=== PATIENT | male | born 1965 | race Caucasian/White ===

== ENCOUNTER 2020-12-23 11:53 | Outpatient (CLI) | payer OTHER, SELFPAY ==
--- NOTE | ~2020-12-23 | XR_ITS ---
EXAMINATION: XR knee RT 2V DATE: 12/23/2020 12:07 INDICATION: Right knee pain. TECHNIQUE: 2 views of right knee were obtained. COMPARISON: None. FINDINGS: There is varus angulation at the knee. No fracture. There is moderate osteoarthritis of med ial and patellofemoral compartments. No knee joint effusion. IMPRESSION: 1. Moderate right knee osteoarthritis. Reviewed, dictated and finalized at location A.
== END 2020-12-23 11:54 | disposition home or self-care (01) ==
LOC: ANHIMG 11:57
PROVIDERS: PCP Internal Medicine; Visit Provider Nurse Practitioner
DX: G89.29 Other chronic pain (principal); M25.561 Pain in right knee; M17.11 Unilateral primary osteoarthritis, right knee
CPT/HCPCS: 73560

== ENCOUNTER 2022-06-30 03:20 | Day surgery (SDC) | payer OTHER, SELFPAY ==
[2022-06-21 13:06] VITALS: BMI 24.7
[2022-06-30 08:55] VITALS: BP 138/91; PULSE 85; RESP 18; TEMP 36.6; O2SAT 100; BMI 25.2
[2022-06-30] MEDS: LACTATED RINGERS 1,000 ML 150 ML IV CONT (09:21)
--- NOTE | 2022-06-30 09:30 | WPDANESEPPF ---
Anes - Initial Pre Proc Eval Procedure: Operation Date: 06/30/22 10:15 Proposed Procedures p Screening Colonoscopy - Giancarlo Yuan MD Date/Time: 06/30/22 09:30 Surgeon: Giancarlo Yuan MD Pre Op Diagnosis: neoplasm screening Patient Data Age: 56 Gender: M Height: 1.83 m Weight: 84.3 kg Last Vital Signs Temp 97.8 F 06/30/22 08:55 Pulse 85 06/30/22 08:55 Resp 18 06/30/22 08:55 BP 138/91 H 06/30/22 08:55 Pulse Ox 100 06/30/22 08:55 O2 Del Method Room Air 06/30/22 08:55 Allergies Allergy/AdvReac Type Severity Reaction Status Date / Time No Known Allergies Allergy Verified 02/09/21 13:35 Home Medications Medication Instructions Recorded Confirmed Type glucosamine [id number] 1 tablet PO DAILY 02/14/19 06/21/22 History vannessa 1,500 mg-400 unit-100 mg tablet (Osteo Bi-Flex (5-Loxin)) multivitamin 1 tablet PO DAILY 02/14/19 06/21/22 History Patient hx anesthesia problems: none Family hx anesthesia problems: none Results Review: All pre-operative results and documents have been reviewed as part of the pre-operative evaluation. [facility] Past Medical History Medical History (Updated 12/16/20 @ 08:16 by Carlie Vazquez NP) Hernia Surgical History Surgical History H/O umbilical hernia repair Family History Family History Mother Patient's mother is in good health Father Patient's father is in good health Social History Social History Smoking status: Never smoker Alcohol intake: current Drinks per week: 4 Substance use type: does not use Living arrangements: with family Spiritual care concerns: No Anes - Eval Final PreProcedure Day of Procedure 06/30/22 09:30 Patient weight: overweight Heart: regular rate and rhythm Lungs: clear to auscultation Airway: Mallampati scale class II Neurological: alert and oriented Last oral intake: >/= 8 hours ASA classification: II Emergent: no Anesthetic plan: proceed Anesthesia type and monitoring: general GIVS and standard monitoring Results Review: All pre-operative results and documents have been reviewed as part of the pre-operative evaluation. Informed Consent: The patient's anesthetic plan and its attendant risks and benefits were discussed with the patient/family/POA. Questions were solicited and answers provided to the satisfaction of the patient/family/POA.
--- NOTE | 2022-06-30 09:58 | PM.HPGS ---
History of Present Illness History of Present Illness Consent: Risks, benefits, and alternatives have been discussed and questions answered. Patient agrees to proceed with procedure. Chief complaint: neoplasm screening Narrative: Emerson Asencio is a 56 year old male Presents for screening colonoscopy. Patient's current weight appetite and bowel movements are normal. Patient denies abdominal pain. He has had no bleeding. Patient reports his brother may have had colon polyps identified recently. Review of Systems Review of Systems: Review of systems noncontributory. [facility] Past Medical History Medical History (Updated 12/16/20 @ 08:16 by Carlie Vazquez NP) Hernia Surgical History Surgical History H/O umbilical hernia repair Family History Family History Mother Patient's mother is in good health Father Patient's father is in good health Social History Social History Smoking status: Never smoker Alcohol intake: current Drinks per week: 4 Substance use type: does not use Living arrangements: with family Spiritual care concerns: No Meds Home Medications and Allergies Home Medications Medication Instructions Recorded Confirmed Type glucosamine [id number]-[id number] 1 tablet PO DAILY 02/14/19 06/21/22 History vannessa 1,500 mg-400 unit-100 mg tablet (Osteo Bi-Flex (5-Loxin)) multivitamin 1 tablet PO DAILY 02/14/19 06/21/22 History Allergies Allergy/AdvReac Type Severity Reaction Status Date / Time No Known Allergies Allergy Verified 02/09/21 13:35 Vital Signs Vital Signs - 24 hr 06/30/22 08:55 Temperature 97.8 F Pulse Rate 85 Respiratory Rate 18 Blood Pressure 138/91 H Pulse Oximetry 100 Oxygen Delivery Room Air Exam Narrative: Physical exam reveals patient to be alert. Vital signs stable. HEENT exam is unremarkable. Patient is anicteric. Lungs are clear to auscultation and percussion. Heart is without murmur or extra sounds. Abdomen bowel sounds are present soft nontender with no organomegaly. Digital external rectal exam is normal. Assessment and Plan Assessment and plan (1) Screening for colon cancer: Code(s): Z12.11 - Encounter for screening for malignant neoplasm of colon Status: Acute Assessment and Plan: Patient presents for colonoscopy for neoplasia screening purposes. Further recommendations may be given after endoscopy.
[2022-06-30 10:24] VITALS: BP 126/83; PULSE 80; RESP 15; O2SAT 98
[2022-06-30 10:34] VITALS: BP 120/78; PULSE 85; RESP 19; O2SAT 98
[2022-06-30 10:44] VITALS: BP 125/81; PULSE 79; RESP 17; O2SAT 98
== END 2022-06-30 11:03 | disposition home or self-care (01) ==
PROVIDERS: PCP Internal Medicine; Visit Provider Internal Medicine Gastroenterology
PROC: 0DJD8ZZ Inspection of Lower Intestinal Tract, Via Natural or Artificial Opening Endoscopic (ICD-10-PCS; CPT 45378; principal; 2022-06-30 10:15)
DX: Z12.11 Encounter for screening for malignant neoplasm of colon (principal); K64.8 Other hemorrhoids
CPT/HCPCS: 45378; J2704; J7120

== ENCOUNTER → 2022-07-11 16:01 | Outpatient (CLI) | payer OTHER, SELFPAY ==
--- NOTE | ~2022-07-11 | XR_ITS ---
EXAM: XR hand LT min 3V DATE: 07/11/2022 16:11 HISTORY: Thumb pain . COMPARISON: None available. FINDINGS: Normal mineralization. No fracture or dislocation. No lytic or blastic lesion. Degenerativ e changes typical of osteoarthritis present in the interphalangeal joints of the fingers, the second and third MCP joints, radiocarpal joint, triscaphe joint and the trapeziometacarpal joint. Changes ar e most progressive at the trapeziometacarpal joint. No erosion or periosteal change. Soft tissues wit hin normal limits. IMPRESSION: Polyarticular osteoarthritis of the left hand. Reviewed, dictated and finalized at location K.
== END ==
PROVIDERS: PCP Clinical Nurse Specialist; Visit Provider Clinical Nurse Specialist
DX: M19.042 Primary osteoarthritis, left hand (principal)
CPT/HCPCS: 73130

== ENCOUNTER 2024-01-15 08:07 | Outpatient (CLI) | payer OTHER, SELFPAY ==
[2024-01-15 08:52] LABS: Add Urine Microscopic? NO; Appearance Urine Clear (Clear); Bilirubin Urine Negative (Negative); Blood Urine Negative (Negative); Color Urine Yellow (Yellow); Glucose Urine UA Negative (Negative); Ketones Urine Negative (Negative); Leukocyte Esterase Ur Negative LEU/UL (Negative); Nitrate Urine Negative (Negative); Protein Urine Negative (Negative); Specific Grav Ur 1.025 (1.001-1.035); Urobilinogen Urine 0.2 mg/dL (<2.0)
[2024-01-15 09:02] LABS: Basophils Percent Auto 0.4 % (0.2-1.2); Eosinophils Absolute Auto 0.1 K/mm3 (0-0.3); Eosinophils Percent Auto 2.1 % (0-4.4); Hematocrit 47.1 % (42.0-52.0); Hemoglobin 16.3 g/dL (14.0-18.0); Immature Granulocyte Absolute 0.02 K/mm3 (0.00-0.031); Immature Granulocyte Percent A 0.4 % (0-0.5); Lymphocytes Absolute Auto 1.74 K/mm3 (0.9-3.2); Lymphocytes Percent Auto 33.2 % (18.3-44.2); Mean Corpuscular HGB Conc 34.6 g/dl (32-36); Mean Corpuscular Hemoglobin 32.7 pg (26-34); Mean Corpuscular Volume 94.6 fl (80-100); Mean Platelet Volume 10.2 fl (7.4-10.4); Monocytes Absolute Auto 0.4 K/mm3 (0.1-0.6); Monocytes Percent Auto 8.2 % (2.6-8.5); Neutrophils Absolute Auto 2.9 K/mm3 (1.3-6.7); Neutrophils Percent Auto 55.7 % (45.5-73.1); Platelet Count Result 234 k/mm3 (150-375); Red Blood Count 4.98 M/mm3 (4.6-6.20); Red Cell Distribution Width 13.1 % (11.5-14.5); White Blood Count 5.2 K/mm3 (4.5-10.0)
[2024-01-15 09:18] LABS: Anion Gap 9 mmol/L (4-12); Blood Urea Nitrogen 18 mg/dL (9-20); Carbon Dioxide 27 mmol/L (22-30); Chloride 106 mmol/L (98-107); Estimated Glomerular Filt Rate > 60; Glucose 103 mg/dL (65-110); Potassium 4.1 mmol/L (3.4-5.0); Sodium 142 mmol/L (137-145)
--- NOTE | 2024-01-15 11:13 | ECG_ITS ---
Test Date: 2024-01-15 11:20:05 Measurements Intervals [place] Rate: 67 P: 5 NE: 149 QRS: 7 QRSD: 98 T: 14 QT: 369 QTc: 392 Interpretive Statements SINUS RHYTHM BASELINE ARTIFACT- II, III, AVR, AVL, AVF, V1 NORMAL ECG No previous ECG available for comparison Electronically Signed On 01-15-2024 11:30:32 RESIDENTIAL CASE MANAGER by Colton Shaikh D.O.
== END 2024-01-15 08:08 | disposition home or self-care (01) ==
LOC: ANHLAB 08:08
PROVIDERS: PCP Internal Medicine; Visit Provider Orthopaedic Surgery
DX: R53.83 Other fatigue (principal); E78.5 Hyperlipidemia, unspecified; I10 Essential (primary) hypertension
CPT/HCPCS: 36415; 80048; 81003; 85025; 93005

== ENCOUNTER 2024-02-12 07:49 | Outpatient (CLI) | payer OTHER, SELFPAY ==
[2024-02-12 09:05] LABS: Albumin Level 4.5 g/dL (3.5-5.1); Hemoglobin A1C 5.5 % (<5.7)
[2024-02-12 09:07] LABS: Prothrombin Time 13.2 Seconds (11.1-14.7)
[2024-02-12 09:08] LABS: Partial Thromboplastin Time 26.4 Seconds (22.3-36.8)
[2024-02-12 09:58] LABS: Urine Cotinine NEGATIVE
[2024-02-12 10:07] LABS: MRSA (PCR) NOT DETECTED (NOT DETECTE)
== END 2024-02-12 07:50 | disposition home or self-care (01) ==
LOC: ANHSURGERY 07:52
PROVIDERS: PCP Internal Medicine; Visit Provider Orthopaedic Surgery
DX: M17.11 Unilateral primary osteoarthritis, right knee (principal); Z01.818 Encounter for other preprocedural examination
CPT/HCPCS: 80307; 82040; 83036; 85610; 85730; 87641

== ENCOUNTER 2024-02-27 01:44 | Day surgery (SDC) | payer OTHER, SELFPAY ==
[2024-02-12 08:01] VITALS: BMI 25.7
[2024-02-12 08:16] VITALS: BP 127/64; PULSE 78; RESP 16; TEMP 36.8; O2SAT 99
--- NOTE | 2024-02-12 08:17 | PC.NURSE ---
Report to the Outpatient Waiting Room, entrance under the green pavilion located off [facility], at time __0830am __ on date _02/27/24 . Planned Procedure Time: __10:30am .? Time changes happen often and if your time is changed the preop area will call you the afternoon before. - You and your visitor will be asked to self-screen and do not enter if you have any COVID symptoms. Please call surgeon if you need to reschedule. - A mask is optional within the hospital at this time. Patients may have clear liquids (water, carbonated beverages, clear teas, apple juice) until 3 hours prior to surgery with a maximum of 20 ounces. - No food from midnight until time of surgery and no smoking. This includes no chewing gum, candy or mints.(07:30am) Take only the following medications with a SIP of water on the morning of surgery: None DO NOT STOP ANY OF YOUR OTHER PRESCRIPTION MEDICATIONS PRIOR TO SURGERY EXCEPT THE FOLLOWING Medications to discontinue per physician Hold all vitamins & supplements for 3 days prior per Anesthesia Date to take last dose____02/23/24 Please no make-up, nail israeli, hairspray, perfume, deodorant, or body powder the day of surgery.? No jewelry (including any body piercings) or valuables the day of surgery, leave them at home.? Please take a shower or bath the night before, or the morning of, surgery with an antibacterial soap & Hibicleanse scrub per Dr Mota.? Wear comfortable, loose fitting clothing.? - Jewelry must be removed prior to entering the operating room.? Rings and piercings that are not removed may be cut off. - The hospital will not accept responsibility for valuables.? - Please leave all valuables, including medications, at home the day of surgery. If you are going home after surgery, a licensed coach tour driver must drive you home.? - NO public transportation without another adult if you receive anesthesia. - We recommend that an adult stay with you for 24 hours following discharge. - We also recommend that you do not drive, make important decision, drink alcoholic beverages, or take any drugs that were not prescribed by your health care provider for at least 24 hours after your discharge time. Follow any additional instructions given to you from your surgeon. Telephone instructions given to _Patient and asked if any additional questions and then verbalized understanding. Patient advised to call surgeon office or pre surgery nurse liaison [phone] if any additional questions.
[2024-02-27] VITALS (14 sets, daily range): BP systolic 126–164; BP diastolic 76–98; PULSE 71–86; RESP 12–20; TEMP 36.5–36.9; O2SAT 98–100; BMI 26.1
--- NOTE | ~2024-02-27 | XR_ITS ---
[id number] Ordering provider: Kurtis Mota MD History: . POST-OP, RIGHT TKA . Comparison: None. FINDINGS: BONES: No acute fracture or dislocation. JOINT SPACES: Total knee arthroplasty. SOFT TISSUES: Subcutaneous postoperative changes with air seen. IMPRESSION: No acute osseous abnormality right knee. Total knee arthroplasty. Reviewed, dictated and finalized at location A. URE PROCESSOR
--- NOTE | 2024-02-27 07:21 | WPDHPUPDATE1 ---
History and Physical Update Update Date/Time: 02/27/24 07:21 History and Physical has been reviewed, including an updated exam of the patient. There are NO changes in the patient's condition. Risks, benefits, and alternatives have been discussed and questions answered. Patient agrees to proceed with procedure.
[2024-02-27] MEDS: ACETAMINOPHEN 500 MG TABLET 1000 MG PO (09:40)
--- NOTE | 2024-02-27 09:44 | P.PNAN_ITS ---
Anes - Initial Pre Proc Eval Procedure: Operation Date: 02/27/24 10:30 Proposed Procedures p Right Total Knee Arthroplasty - Kurtis Mota MD Date/Time: 02/27/24 09:44 Surgeon: Kurtis Mota MD Pre Op Diagnosis: right knee djd Patient Data Age: 58 Gender: M Height: 1.83 m Weight: 85.1 kg Last Vital Signs Temp 98.3 F 02/12/24 08:16 Pulse 78 02/12/24 08:16 Resp 16 02/12/24 08:16 BP 127/64 02/12/24 08:16 Pulse Ox 99 02/12/24 08:16 O2 Del Method Room Air 02/12/24 08:16 Allergies Allergy/AdvReac Type Severity Reaction Status Date / Time No Known Allergies Allergy Verified 02/18/24 13:38 Home Medications ?Medication ?Instructions ?Recorded ?Confirmed ?Type glucosamine [id number] 1 tablet PO DAILY 02/14/19 02/27/24 History vannessa 1,500 mg-400 unit-100 mg tablet (Osteo Bi-Flex (5-Loxin)) multivitamin 1 tablet PO DAILY 02/14/19 02/27/24 History sildenafil 50 mg tablet 50 mg PO DAILY PRN sexual activity 10/31/23 02/12/24 Rx #30 tabs omega 3-spl-ssd-fish oil 900 1 cap PO DAILY 02/12/24 02/27/24 History mg-1,400 mg capsule,delayed release Patient hx anesthesia problems: none Family hx anesthesia problems: none Results Review: All pre-operative results and documents have been reviewed as part of the pre- operative evaluation. [facility] Past Medical History Medical History (Updated 02/18/24 @ 15:30 by MIRIAM Lunsford) Right knee DJD Hyperlipidemia Varicose veins of bilateral lower extremities with pain Hernia Surgical History Surgical History H/O lateral meniscus repair of left knee H/O umbilical hernia repair Family History Family History Mother Patient's mother is in good health Father Patient's father is in good health Unknown Hypertension Social History Social History (Reviewed 02/18/24 @ 13:38 by Amy Navarro Smoking status: Never smoker Additional smoking assessment comments: Denies any nicotine Alcohol intake: current Drinks per week: 4 Substance use: never Substance use type: does not use Lack of Transportation: No Lack of Food: Never True Current Housing: I Have Housing Concerned About Future Housing: No Difficulty Paying Gas/Electric Bills: No Difficulty Paying for Meds: No Currently Unemployed: No Education: Trade/Vocational Certificate Difficulty w/ Childcare or Family Care: No Living arrangements: with family Additional living arrangements comments: Occupation/Education: occupation 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 Informed Consent: The patient's anesthetic plan and its attendant risks and benefits were discussed with the patient/family/POA. Questions were solicited and answers pr ovided to the satisfaction of the patient/family/POA.
[2024-02-27] MEDS: LACTATED RINGERS 1,000 ML 30 ML IV CONT ×2 (09:45→13:53)
[2024-02-27] MEDS: TRANEXAMIC ACID 1,000MG/ISO100 1,000 MG/100 ML BAG 200 MG IVPB (09:45)
--- NOTE | 2024-02-27 10:25 | SUR.PREOP ---
PT AND INFORMED OF POSSIBLE SURGERY TIME DELAY, DENIES NEEDS AT THIS TIME.
[2024-02-27] MEDS: ceFAZolin 2 GM/D5W 50 ML 2 GM/50 ML BAG IVPB ×2 (11:40→20:57)
[2024-02-27] MEDS: SODIUM CHLORIDE 0.9% IV 37.7 ML, MORPHINE SULFATE INJ (*CRX) 2 MG, ROPivacaine HCL 1% 2... INFILTRATE (12:28)
[2024-02-27] MEDS: TRANEXAMIC ACID 1,000 MG/10 ML AMPUL 1000 MG IV PUSH (13:07)
--- NOTE | 2024-02-27 13:44 | P.OP_ITS ---
Procedure Note - Detailed Date of Procedure 02/27/24 Pre-op Diagnosis right knee djd Post-op Diagnosis Same Procedure Performed R TKA Surgeon Kurtis Mota MD Anesthesia General Description of Procedure THE RIGHT KNEE WAS PREPPED AND DRAPED IN THE STERILE FASHION. THERE WAS A 10 DEGREE FLEXION CONTRACTURE. A MIDLINE SKIN INCISION WAS MADE. A MEDIAL PARAPATELLAR ARTHROTOMY WAS MADE. THE PATELLA WAS EVERTED. THERE WAS TRICOMPARTMENT DJD. THERE WAS MINIMAL PATELLA DJD. AN INTRAMEDULLARY SURINDER WAS PLACED IN THE FEMUR. A DISTAL FEMORAL CUT WAS MADE IN 5 DEGREES OF VALGUS REMOVING APPROXIMATELY 8 MM OF BONE FROM THE DISTAL FEMUR. THE FEMUR WAS SIZED TO 4. A 4 FEMORAL CUTTING BLOCK WAS PLACED IN 3 DEGREES OF EXTERNAL ROTATION AND IN ALIGNMENT WITH CAROL'S LINE AND THE TRANSEPICONDYLAR AXIS. ANTERIOR POSTERIOR AND CHAMFER CUTS WERE MADE. THE CUTS WERE EXCELLENT. NEXT AN INTRAMEDULLARY CUTTING GUIDE WAS PLACED IN THE TIBIA. A TRANS TIBIAL CUT WAS MADE ALONG THE LONG AXIS OF THE TIBIA. APPROXIMATELY 8 MM OF BONE WAS REMOVED FROM THE HIGH SIDE OF THE TIBIA. THE TIBIA WAS THEN PLANED TO A SMOOTH SURFACE. POSTERIOR FEMORAL OSTEOPHYTES WERE REMOVED FROM THE FEMORAL CONDYLES. A 5 TIBIAL TRIAL WAS PLACED IN ALIGNMENT WITH THE 1/3 MEDIAL ASPECT OF THE TIBIAL TUBERCLE. THEN A 5 FEMORAL TRIAL COMPONENT WAS PLACED. BOTH HAD EXCELLENT FITS. EVENTUALLY A 12 MM CR POLYETHYLENE TRIAL COMPONENT WAS PLACED. THE KNEE WAS TAKEN THROUGH A RANGE OF MOTION. THE KNEE CAME OUT TO FULL EXTENSION. T HERE WAS NO ABNORMAL TILT TO THE PATELLA. THERE WAS GOOD A/P AND VARUS/VALGUS STABILITY. THERE WAS NO EXCESSIVE ROLL BACK WITH FLEXION. THE TRIAL COMPONENTS WERE REMOVED. THEN A TONY 4 FEMORAL COMPONENT AND 5 TIBIAL COMPONENT WITH A 12 CR POLYETHYLENE COMPONENT WERE PRESS FIT INTO PLACE. THE KNEE WAS TAKEN THROUGH A ROM AGAIN AND FOUND TO BE STABLE WITH NO PATELLA TILT NO EXCESSIVE ROLL BACK WITH FLEXION AND GOOD STABILITY WITH COMPLETE AND FULL EXTENSION. THE KNEE WAS IRRIGATED WITH STERILE BETADINE AND WATER FOR ABOUT 3 MINUTES. THE BLEEDERS WERE CAUTERIZED. THE ARTHROTOMY WAS REPAIRED WITH NUMBER 1 VICRYL AND NUMBER2 QUIL. THE SUB CUTANEOUS LAYER WITH 2-0 VICRYL AND THE SKIN WITH A 3-0 QUIL AND DERMABOND. THE WOUND WAS WASHED AND A STERILE DRESSING WAS APPLIED. PATIENT WAS EXTUBATED. Estimated Blood Loss -100 Pathology None sent Complications No immediate complications Condition Stable Disposition PACU
[2024-02-27] MEDS: fentaNYL CITRATE INJ (*CRX) 100 MCG/2 ML VIAL 25 MCG IV PUSH ×8 (13:55→14:11)
--- NOTE | 2024-02-27 14:15 | WPDANESPNB ---
Anes - Peripheral Nerve Block Date/Time: 02/27/24 14:15 I have discussed with the patient/family/POA the placement of a peripheral nerve block for post-operative pain management, including associated risks, benefits, complications, and side effects. Alternative methods of post-operative analgesia were detailed. Questions were solicited and answers provided to the satisfaction of the patient/family/POA. Time-Out: A pre-procedural Time-Out was completed immediately before starting the procedure and confirmed: Patient Identification, Site, Procedure, Patient Position and the Availability of Requisite Equipment. Clinical Indications: Acute post-operative pain management requested by the operative surgeon. Nerve Block Insertion Note Anes-nerve block: adductor canal right Patient position: supine Skin prep: chlorhexidine Needle: 22 gauge, stimulating, insulated echogenic needle. Needle length: 80 mm Technique: ultrasound Technique comment: done in pacu Injectate: bupivacaine 0.5% with epi 5 mcg/ml (30ml no epi) Observations: tolerated well Complications: none Procedure start time:: 1403 Procedure end time:: 1410
[2024-02-27] MEDS: HYDROmorphone HCL INJ (*CRX) 1 MG/ML SYR 0.5 MG IV PUSH ×2 (14:49→14:55)
[2024-02-27] MEDS: SODIUM CHLORIDE 0.9% IV 1,000 ML 125 ML IV CONT (16:29)
[2024-02-27] MEDS: SENNA/DOCUSATE SODIUM TABLET 2 TAB PO (16:31)
[2024-02-27] MEDS: KETOROLAC 15 MG/ML VIAL (*BKC) IV PUSH ×2 (17:44→23:33)
[2024-02-27] MEDS: FAMOTIDINE 20 MG TABLET PO (20:58)
[2024-02-27] MEDS: ASPIRIN 325 MG ENTERIC TABLET PO (20:58)
[2024-02-28 05:00] VITALS: BP 147/81; PULSE 85; RESP 18; TEMP 36.6; O2SAT 100
[2024-02-28] MEDS: ceFAZolin 2 GM/D5W 50 ML 2 GM/50 ML BAG IVPB ×2 (05:03→12:37)
[2024-02-28] MEDS: KETOROLAC 15 MG/ML VIAL (*BKC) IV PUSH ×2 (05:03→12:36)
[2024-02-28 06:01] LABS: Basophils Percent Auto 0.2 % (0.2-1.2); Eosinophils Percent Auto 0.2 % (0-4.4); Hematocrit 41.8 % (42.0-52.0); Immature Granulocyte Absolute 0.06 K/mm3 (0.00-0.031); Immature Granulocyte Percent A 0.5 % (0-0.5); Lymphocytes Absolute Auto 1.49 K/mm3 (0.9-3.2); Lymphocytes Percent Auto 12.7 % (18.3-44.2); Mean Corpuscular HGB Conc 33.5 g/dl (32-36); Mean Corpuscular Hemoglobin 31.7 pg (26-34); Mean Corpuscular Volume 94.8 fl (80-100); Mean Platelet Volume 10.3 fl (7.4-10.4); Monocytes Percent Auto 8.1 % (2.6-8.5); Neutrophils Absolute Auto 9.2 K/mm3 (1.3-6.7); Neutrophils Percent Auto 78.3 % (45.5-73.1); Platelet Count Result 202 k/mm3 (150-375); Red Blood Count 4.41 M/mm3 (4.6-6.20); Red Cell Distribution Width 12.7 % (11.5-14.5); White Blood Count 11.7 K/mm3 (4.5-10.0)
[2024-02-28 06:09] LABS: Anion Gap 1 mmol/L (4-12); Blood Urea Nitrogen 14 mg/dL (9-20); Calcium 8.2 mg/dL (8.4-10.2); Carbon Dioxide 28 mmol/L (22-30); Chloride 108 mmol/L (98-107); Estimated CRCL calculation 70 ml/min; Estimated Glomerular Filt Rate > 60; Glucose 108 mg/dL (65-110); Sodium 137 mmol/L (137-145)
[2024-02-28] MEDS: oxyCODONE/ACETAMINOPHEN (*CRX) 5-325 MG TABLET 1 TABLET PO ×2 (08:23→12:35)
[2024-02-28] MEDS: SENNA/DOCUSATE SODIUM TABLET 2 TAB PO (08:24)
[2024-02-28] MEDS: FAMOTIDINE 20 MG TABLET PO (08:24)
[2024-02-28] MEDS: ASPIRIN 325 MG ENTERIC TABLET PO (08:24)
[2024-02-28] MEDS: polyethylene glycoL 3350 17 GM POWD.PACK PO (08:25)
[2024-02-28 09:00] VITALS: BP 110/62; PULSE 83; RESP 16; TEMP 36.4; O2SAT 100
--- NOTE | 2024-02-28 13:21 | P.PNOP_ITS ---
Progress Note: A&P Assessment and Plan (1) S/P total knee arthroplasty: Qualifiers: Laterality: right Qualified Code(s): Z96.651 - Presence of right artificial knee joint Code(s): Z96.659 - Presence of unspecified artificial knee joint Status: Acute Assessment and Plan: POD #1 : Right TKA Continue PT/OT. WBAT. Walker. HIGH FALL RISK. Continue pain control. Ice Knee. Protect skin. DVT prophylaxis with Aspirin. SCDs. Incentive Spirometry Use reviewed. Monitor Dressing. Change prior to discharge. Bowel Regimen. Dispo: Home with Home Health pending progress with PT/OT Plan Reviewed history, exam, radiographs and current labs with attending MD and covering surgeon, Dr. Mota, who agrees with current plan as indicated above. No further recommendations from Dr. Mota at this time. Time Spent With Patient Time with patient: 15 - 25 minutes Subjective Subjective Date/Time Seen: 02/28/24 13:21 Post Op day: 1 Interval history: POD #1: Right TKA Patient doing well. Pain well controlled. No new concerns. Hopeful for d/c home today. Review of Systems Review of Systems: All systems reviewed & are unremarkable except as noted in HPI and below Constitutional: Constitutional: Denies fever(s) and Denies headache(s) ENT: Denies headache(s) Cardiovascular: Cardiovascular: Denies chest pain, Denies diaphoresis, Denies palpitations and Denies dyspnea Respiratory: Respiratory: Denies dyspnea Gastrointestinal: Gastrointestinal: Denies abdominal pain, Denies constipation, Denies nausea and Denies vomiting Genitourinary: Genitourinary: Denies dysuria and Reports nocturia Musculoskeletal: Musculoskeletal: Reports arthralgias (Right Knee ) and Reports joint swelling (Right Knee ) Neurologic: Denies headache(s) Endocrine: Endocrine: Denies palpitations Exam Const: General: comfortable and no acute distress Resp: Effort & Inspection: normal respiratory effort Cardio: Rate: regular rate Rhythm: regular rhythm GI: GI Palp: Yes Soft to palpation, No Tenderness to palpation present (GI) and No Guarding due to palpation present (GI) Skin: General skin exam: wounds noted Wounds: wounds noted Other: Incision c/d/i. No surrounding redness/warmth. No hematoma. Mild ecchymosis. No wound dehiscence Neuro: Cognition (Neuro): normal cognition Other: NV intact aside from block. Moves toes. Sensation intact to light touch. +ankle dorsiflexion/plantarflexion. Extrem: Right lower extremity: normal to inspection, knee Details: tenderness (diffuse, mild ) Location: of the patella, swelling (diffuse, consistent with surgical intervention ), abnormal ROM Details: pain with active ROM during, pain with passive ROM during and with range as follows (limited due to recent surgical intervention ); able to extend lower leg actively and ecchymosis (mild ), lower leg (Negative Frank's Sign ) Details: normal to inspection; no erythema and no tenderness, ankle (+ankle dorsiflexion/plantarflexion ) Details: normal to inspection, no edema and normal ROM; no tenderness, no swelling and no ecchymosis and foot Details: normal capillary refill, normal to inspection, vascular exam Details: dorsalis pedis pulse present and motor-sensory exam Details: light-touch normal; no tenderness Left lower extremity: normal to inspection Psych: Mental Status: mental status grossly normal Objective Data Vital Signs Vital Signs: Vital Signs - 24 hr 02/27/24 13:53 02/27/24 14:05 02/27/24 14:20 Temperature 36.5 C Pulse Rate 77 79 80 Respiratory Rate 12 16 14 Blood Pressure 128/87 140/84 137/97 H Pulse Oximetry 100 100 100 Oxygen Delivery Simple Face Mask Simple Face Mask Simple Face Mask Oxygen Flow Rate 8 8 8 02/27/24 14:35 02/27/24 14:50 02/27/24 15:05 Temperature Pulse Rate 73 72 74 Respiratory Rate 13 12 20 Blood Pressure 148/90 H 144/95 H 155/90 H Pulse Oximetry 100 100 99 Oxygen Delivery Room Air Room Air Room Air Oxygen Flow Rate 02/27/24 15:13 02/27/24 15:40 02/27/24 15:55 Temperature 36.5 C 36.6 C Pulse Rate 72 85 85 Respiratory Rate 13 16 16 Blood Pressure 156/94 H 164/77 H 145/98 H Pulse Oximetry 100 99 100 Oxygen Delivery Room Air Oxygen Flow Rate 02/27/24 17:25 02/27/24 20:00 02/27/24 21:00 Temperature 36.8 C 36.8 C Pulse Rate 86 86 86 Respiratory Rate 16 20 20 Blood Pressure 148/76 H 156/87 H Pulse Oximetry 100 99 99 Oxygen Delivery Room Air Oxygen Flow Rate 02/27/24 23:54 02/28/24 05:00 02/28/24 08:05 Temperature 36.9 C 36.6 C Pulse Rate 71 85 Respiratory Rate 18 18 Blood Pressure 126/77 147/81 H Pulse Oximetry 98 100 Oxygen Delivery Room Air Oxygen Flow Rate 02/28/24 08:27 02/28/24 08:44 02/28/24 09:00 Temperature 36.4 C Pulse Rate 83 Respiratory Rate 16 Blood Pressure 110/62 Pulse Oximetry 100 Oxygen Delivery Room Air Room Air Oxygen Flow Rate Intake/Output Intake/Output: Intake & Output 02/25/24 02/26/24 02/27/24 02/28/24 23:59 23:59 23:59 23:59 Intake Total 1800 1010 Output Total 475 Balance 1325 1010 Meds/Results Medications: Active Medications Generic Name Dose Route Start Last Admin Trade Name Freq PRN Reason Stop Dose Admin Aspirin 325 mg 02/27/24 21:00 02/28/24 08:24 Aspirin 325 Mg Enteric Tablet PO 325 mg Q12HR YISSEL Administration Diazepam 5 mg 02/27/24 15:15 Diazepam (*Crx) 5 Mg Tablet PO Q8H PRN Spasms Diphenhydramine HCl 25 mg 02/27/24 15:15 Diphenhydramine Hcl Inj 50 Mg/Ml Vial IV PUSH Q6H PRN Itching Famotidine 20 mg 02/27/24 21:00 02/28/24 08:24 Famotidine 20 Mg Tablet PO 20 mg Q12HR YISSEL Administration Hydromorphone HCl 1 mg 02/27/24 15:15 Hydromorphone Hcl Inj (*Crx) 1 Mg/Ml Syr IV PUSH Q2H PRN Breakthrough Pain Rated 7-10 or NPO Hydromorphone HCl 0.5 mg 02/27/24 15:15 Hydromorphone Hcl Inj (*Crx) 1 Mg/Ml Syr IV PUSH Q2H PRN Breakthrough Pain Rated 4-6 or NPO Ibuprofen 800 mg in 200 mls @ 400 mls/hr 02/27/24 15:15 Caldolor 800 Mg/200 Ml IVPB Q6H PRN Breakthrough Pain Rated 1-3 or NPO Ketorolac Tromethamine 15 mg 02/27/24 18:00 02/28/24 12:36 Ketorolac 15 Mg/Ml Vial (*Bkc) IV PUSH 02/28/24 18:01 15 mg Q6HR YISSEL Administration Naloxone HCl 0.1 mg 02/27/24 15:15 Naloxone Hcl 0.4 Mg/Ml Vial IV PUSH Q2M PRN Opiate Reversal Ondansetron HCl 4 mg 02/27/24 15:15 Ondansetron Inj 4 Mg/2 Ml Vial IV PUSH Q4H PRN Nausea And Vomiting Oxycodone/Acetaminophen 1 tablet 02/27/24 15:15 02/28/24 12:35 Oxycodone/Acetaminophen (*Crx) 5-325 Mg Tablet PO 1 tablet Q4H PRN Administration Pain Rated 4-6 Oxycodone/Acetaminophen 1 tab 02/27/24 15:15 Oxycodone/Acetaminophen (*Crx) 10-325 Mg Tablet PO Q6H PRN Pain Rated 7-10 Polyethylene Glycol 17 gm 02/28/24 09:00 02/28/24 08:25 Polyethylene Glycol 3350 17 Gm Powd.Pack PO 17 gm QAM YISSEL Administration Senna/Docusate Sodium 2 tab 02/27/24 17:00 02/28/24 08:24 Senna/Docusate Sodium Tablet PO 2 tab BID YISSEL Administration Radiology Results: ITS Impressions Knee X-Ray 02/27/24 14:22 IMPRESSION: No acute osseous abnormality right knee. Total knee arthroplasty. Labs Labs: Laboratory Results - last 24 hr 02/28/24 05:27 WBC 11.7 H RBC 4.41 L Hgb 14.0 Hct 41.8 L MCV 94.8 MCH 31.7 MCHC 33.5 RDW 12.7 Plt Count 202 MPV 10.3 Immature Gran % (Auto) 0.5 Neut % (Auto) 78.3 H Lymph % (Auto) 12.7 L [place] % (Auto) 8.1 Eos % (Auto) 0.2 Baso % (Auto) 0.2 Lymph # (Auto) 1.49 [place] # (Auto) 1.0 H Eos # (Auto) 0.0 Baso # (Auto) 0.0 Abs Immat Gran (auto) 0.06 H Absolute Neuts (auto) 9.2 H Absolute Nucleated RBC 0.000 Nucleated RBC % 0.0 Sodium 137 Potassium 4.0 Chloride 108 H Carbon Dioxide 28 Anion Gap 1 L BUN 14 Creatinine 1.10 Estim Creat Clear Calc 70 Estimated GFR > 60 Glucose 108 Calcium 8.2 L Quality VTE Prophylaxis VTE prophylaxis: pharmacologic ordered
--- NOTE | 2024-02-28 13:24 | P.DS_ITS ---
DS: Admitting Diagnosis Discharge Date 02/28/2024 Admitting Diagnosis Right Knee DJD DS: Discharge Diagnosis Discharge Diagnosis (1) S/P total knee arthroplasty: Qualifiers: Laterality: right Qualified Code(s): Z96.651 - Presence of right artificial knee joint Code(s): Z96.659 - Presence of unspecified artificial knee joint Status: Acute Assessment and Plan: POD #1 : Right TKA Continue PT/OT. WBAT. Walker. HIGH FALL RISK. Continue pain control. Ice Knee. Protect skin. DVT prophylaxis with Aspirin. SCDs. Incentive Spirometry Use reviewed. Monitor Dressing. Change prior to discharge. Bowel Regimen. Dispo: Home with Home Health pending progress with PT/OT Plan Reviewed history, exam, radiographs and current labs with attending MD and covering surgeon, Dr. Mota, who agrees with current plan as indicated above. No further recommendations from Dr. Mota at this time. DS: Summary Hospital Course Reason for hospitalization: Right TKA Hospital Course: 58 year old male admitted s/p Right TKA for postoperative medical management, pain control and mobilization with PT/OT. Patient progressed well with PT/OT. Pain and vitals remained stable throughout. The patient has been cleared to be discharged home with home health at this time. All discharge care instructions reviewed at depth. New medications reviewed. Follow up planned for 3 weeks in the outpatient orthopedic clinic with Dr. Mota. Dr. Mota in agreement with safe discharge at this time. Status at Discharge Functional status at discharge: uses cane/walker Overall status at discharge: patient is progressing back to baseline Time Spent with Patient Time attestation: Total time spent providing and/or coordinating discharge services: Exam Const: General: comfortable and no acute distress Resp: Effort & Inspection: normal respiratory effort Cardio: Rate: regular rate Rhythm: regular rhythm Skin: General skin exam: wounds noted Wounds: wounds noted Other: Incision c/d/i. No surrounding redness/warmth. No hematoma. Mild ecchymosis. No wound dehiscence Neuro: Cognition (Neuro): normal cognition Other: NV intact aside from block. Moves toes. Sensation intact to light touch. +ankle dorsiflexion/plantarflexion. Extrem: Right lower extremity: normal to inspection, knee Details: tenderness (diffuse, mild ) Location: of the patella, swelling (diffuse, consistent with surgical intervention ), abnormal ROM Details: pain with active ROM during, pain with passive ROM during and with range as follows (limited due to recent surgical intervention ); able to extend lower leg actively and ecchymosis (mild ), lower leg (Negative Frank's Sign ) Details: normal to inspection; no erythema and no tenderness, ankle (+ankle dorsiflexion/plantarflexion ) Details: normal to inspection, no edema and normal ROM; no tenderness, no swelling and no ecchymosis and foot Details: normal capillary refill, normal to inspection, vascular exam Details: dorsalis pedis pulse present and motor-sensory exam Details: light-touch normal; no tenderness Left lower extremity: normal to inspection Psych: Mental Status: mental status grossly normal DS: Data Data Completed and Pending Labs on day of discharge: Labs from last 24 hours 02/28/24 05:27 WBC 11.7 H RBC 4.41 L Hgb 14.0 Hct 41.8 L MCV 94.8 MCH 31.7 MCHC 33.5 RDW 12.7 Plt Count 202 MPV 10.3 Immature Gran % (Auto) 0.5 Neut % (Auto) 78.3 H Lymph % (Auto) 12.7 L [place] % (Auto) 8.1 Eos % (Auto) 0.2 Baso % (Auto) 0.2 Lymph # (Auto) 1.49 [place] # (Auto) 1.0 H Eos # (Auto) 0.0 Baso # (Auto) 0.0 Abs Immat Gran (auto) 0.06 H Absolute Neuts (auto) 9.2 H Absolute Nucleated RBC 0.000 Nucleated RBC % 0.0 Sodium 137 Potassium 4.0 Chloride 108 H Carbon Dioxide 28 Anion Gap 1 L BUN 14 Creatinine 1.10 Estim Creat Clear Calc 70 Estimated GFR > 60 Glucose 108 Calcium 8.2 L Discharge Plan Discharge Patient Disposition: Home Health Service Discharge Instructions: Per Care Coordination, patient to discharge with [facility] ([phone]) for PT/OT and care home services. Agency will call to arrange initial visit. Post Op Total Knee Replacement Instructions Dr. Kurtis Mota [phone] * Your dressing will be changed prior to your discharge. You will be sent home with one additional dressing to be changed on post op day 7 by the home health RN. Your duc will be removed on the 14th day after surgery and steri- strips will be placed. Please practice good hand hygiene and do not touch your incision in order to prevent infection. * You may shower with your dressing but do not submerge in a bath tub. * Do not drive or operate machinery until you are released by Dr. Mota. * Do not walk without a walker for any reason until you are released by Dr. Mota. * Continue to use your ice machine. Please use a towel or pillow case to protect your skin before applying your ice machine. * Do NOT place a pillow under your knee. You may use a pillow from the calf down if needed. This will prevent a flexion contracture postoperatively. * CPM: You may begin use of your CPM machine at home if you have been given one pre-operatively. DO NOT USE WHILE YOU ARE SLEEPING. * ROMTech: If you were given a ROMTech Portable Connect System preoperatively, you are to begin use on the day you arrive home postoperatively. Our goal is for you to use the machine 5 times per day. The sessions are very short in the beginning and will progress as you progress. We are able to monitor your progress from afar as well as your pain and other reported symptoms. If you have difficulties with the machine, please call . NOTE: Please attempt to use the machine even when in pain as this will washtub worker helper your therapy with very gentle motion. * Your first post op appointment was sent to you via mail preoperatively. If you have any questions or are unable to make your appointment, please contact our office for scheduling questions. * Your medications have been sent to your pharmacy. You have been sent home with pain medication. Please sheepskin pickler an over the counter stool softener to prevent constipation due to narcotic use. Please keep this in mind during your postoperative recovery. If you are not experiencing regular bowel movements, please contact our office for further instruction. * Please contact our office with any questions/concerns regarding your knee at [phone]. Patient Instructions: Antibiotic Form Patient Language: Qatari Stand Alone Forms: General Discharge Information Follow-up/Referrals: Kurtis Mota MD [Physician] - Keep Reg. Scheduled Appt. Discharge Medications: New aspirin 325 mg Tablet,Delayed Release (Dr/Ec) 325 mg PO Q12HR 28 Days Qty: 56 0RF oxycodone-acetaminophen 5-325 mg Tablet 1 - 2 tablet PO Q4-6H PRN (Reason: Pain Rated 4-6) Qty: 56 0RF Continued omega 1-bkk-fec-fish oil 900-1,400 mg Capsule,Delayed Release(Dr/Ec) 1 cap PO DAILY multivitamin Tablet 1 tablet PO DAILY [id number] serr [Osteo Bi-Flex (5-Loxin)] 1,500-400-100 mg-unit-mg Tablet 1 tablet PO DAILY sildenafil 50 mg tablet 50 mg PO DAILY PRN (Reason: sexual activity) Qty: 30 2RF Rx Instructions: administer 30 minutes to 4 hours before activity Quality VTE Prophylaxis VTE prophylaxis: pharmacologic ordered
== END 2024-02-28 14:40 | disposition home health service (06) ==
LOC: ANHSURGERY 09:19 → ANH3MED 15:20
PROVIDERS: PCP Internal Medicine; Visit Provider Orthopaedic Surgery
PROC: (CPT 27447; principal; 2024-02-27 10:30)
DX: M17.11 Unilateral primary osteoarthritis, right knee (principal); G89.18 Other acute postprocedural pain
CPT/HCPCS: 27447; 64447; 36415; 73560; 80048; 85025; 86850; 86900; 86901; 97110; 97116; 97161; 97165; A9270; C1713; C1776; J0171; J0690; J1100; J1171; J1885; J2003; J2250; J2270; J2371; J2405; J2704; J2795; J3010; J3370; J7030; J7120

== ENCOUNTER 2024-06-04 00:47 | Day surgery (SDC) | payer OTHER, SELFPAY ==
[2024-05-28 09:16] VITALS: BMI 23.9
--- NOTE | 2024-05-28 09:23 | PC.NURSE ---
Report to the Outpatient Waiting Room, entrance under the green pavilion located off [facility], at time 1PM_ on date 06/04/24 _. Planned Procedure Time: 3PM_.? Time changes happen often and if your time is changed the preop area will call you the afternoon before. - You and your visitor will be asked to self-screen and do not enter if you have any COVID symptoms. Please call surgeon if you need to reschedule. - A mask is optional within the hospital at this time. Patients may have clear liquids (water, carbonated beverages, clear teas, apple juice) until 3 hours prior to surgery with a maximum of 20 ounces. - No food from midnight until time of surgery and no smoking, or chewing tobacco (or any form of nicotine). No chewing gum, candy or mints. - Infants may have breast milk until 4 hours before surgery, formula 6 hours prior to surgery. - Children will be allowed to drink immediately following surgery.? If applicable, please bring a bottle or sippy cup to assist with drinking. Juice, water, soda, and popsicles are readily available.? For infants on formula, please bring formula the day of surgery.? Pacifiers are allowed. Take only the following medications with a SIP of water on the morning of surgery: _TYLENOL IF NEEDED DO NOT STOP ANY OF YOUR OTHER PRESCRIPTION MEDICATIONS PRIOR TO SURGERY EXCEPT THE FOLLOWING Hold all vitamins and supplements for 3 days per anesthesiologist. Medications to discontinue per physician NONE Date to take last dose Please no make-up, nail haitian, hairspray, perfume, deodorant, or body powder the day of surgery.? No jewelry (including any body piercings) or valuables the day of surgery, leave them at home.? Please take a shower or bath the night before, or the morning of, surgery with an antibacterial soap.? Wear comfortable, loose fitting clothing.? Children are encouraged to wear pajamas. - Jewelry must be removed prior to entering the operating room.? Rings and piercings that are not removed may be cut off. - The hospital will not accept responsibility for valuables.? - Please leave all valuables, including medications, at home the day of surgery. If you are going home after surgery, a licensed cdl bulk driver must drive you home.? - NO public transportation without another adult if you receive anesthesia. - We recommend that an adult stay with you for 24 hours following discharge. - We also recommend that you do not drive, make important decision, drink alcoholic beverages, or take any drugs that were not prescribed by your health care provider for at least 24 hours after your discharge time. For Pediatric surgeries, we recommend two adults accompany the child home. Follow any additional instructions given to you from your surgeon. Telephone instructions given to _PATIENT__and asked if any additional questions and then verbalized understanding. Patient advised to call surgeon office or pre surgery nurse liaison [phone] if any additional questions.
--- OUTSIDE RECORDS SUMMARY | 2024-06-04 00:49 | XMS_ITS | Referral Summary ---
Author Organization [facility] Address [address] [place] [address] Care Team Providers Care Assistant Center Director Name Role Phone Po Hand DO Primary Care Provider + [phone] Kamlesh Guzman MD Unavailable [phone] Allergies No known active allergies Medications glucosamine/D3/ boswellia susana (OSTEO BI-FLEX, 5-LOXIN, ORAL) Take by mouth A ctive multivit-min/fe rrous fumarate (MULTI VITAMIN ORAL) Take by mouth Active gentamicin (GARAMYCIN) 0.1 % ointment Apply topically 3 (three) times a day 15 g 2 Active Additional Information Patient not taking.Reported on 08/31/2021 ALPRAZolam (XANAX) 0.5 mg tablet Take 1 tab before leaving home. Take 2nd tab upon arrival to office. 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 Well- healed surgical scars. Patient's symptoms have resolved. Continue compression therapy follow-up p.r.n. Assessment & Plan (07/06/2021 9:57 AM CDT): Impression: Patient is status post right small saphenous vein EVLT and stab phlebectomies. Patient has a firm mass behind his right knee as well as the lateral aspect of his right calf. Recent venous duplex reveals no acute DVTs to the right lower extremity. Patient continues to complain of leg heaviness, fatigue and discomfort to his left lower extremity. A venous reflux performed on 02/07/2021 reveals significant reflux to the left great saphenous vein. Plan: For masses behind patient's right knee and lateral aspect of right calf is more likely of a thrombosed varicosity. Discussed options with the patient and he reports the masses are tolerated and he is not interested in any surgical intervention to the masses. We recommend left great saphenous vein EVLT with stab phlebectomies. Risks of the procedure communicate with the patient. Patient voices understanding and wishes to proceed. Recommend patient to continue utilizing compression stockings to his right lower extremity. Assessment & Plan (06/15/2021 11:17 AM CDT): Impression: Patient is status post right small saphenous vein EVLT and stab phlebectomies. The most distal phlebectomy site to the anterior calf of his right lower extremity is draining serous drainage. No surrounding erythema is noted. Patient also has a firm mass behind his right knee that is tender to touch, most likely a residual vein from the phlebectomy. No erythema surrounds this area. Plan: Recommend gentamicin ointment to draining phlebectomy site. Patient to continue utilizing compression stockings. Patient to follow-up in 1 month with a right lower extremity duplex. 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 Patient reports he has been compliant with wearing compression stockings and states that his legs feel better but is still causing discomfort. He is a healthy and active man and reports discomfort to his legs causes disruption in his activity. Venous duplex revealed significant reflux to his small saphenopopliteal junction on the right lower extremity as well as a greater saphenous vein to his left lower extremity. Plan: Recommend staged EVLT and stab phlebectomies starting with the right lower extremity. Risks of the procedure communicate with the patient with full understanding. Patient wishes to proceed. Assessment & Plan (01/19/2021 1:45 PM SHELTERED WORKSHOP WORKER): Patient has longstanding history of progressively painful varicosities throughout the bilateral lower extremities. He has intermittently worn compression stockings. He is otherwise healthy and active. Will obtain lower extremity venous reflux study recommended conservative measures which include knee-high compression therapy ongoing exercise and elevation. Follow up in 2-3 months for repeat evaluation. Social History Tobacco Use Types Packs/Day Years Used Date Smoking Tobacco: Never Sex and Gender Information Value Date Recorded Sex Assigned at Not on file Legal Sex Male 2:54 PM CDT Gender Identity Not on file Sexual Orientation Not on file Last Filed Vital Signs Vital Sign Reading Time Taken Comments Blood Pressure 151/83 08/31/2021 2:51 PM CDT Pulse 83 08/31/2021 2:51 PM CDT Temperature - - Respiratory Rate - - Oxygen Saturation - - Inhaled Oxygen Concentration - - Weight 81.6 kg (180 lb) 08/31/2021 2:51 PM CDT Height 182.9 cm (6') 08/31/2021 2:51 PM CDT Body Mass Index 24.41 08/31/2021 2:51 PM CDT Plan of Treatment Not on file Insurance [employer] COMPENSATION GENERIC DR Cardenas [facility] [address] [place] [address] Care Teams Assistant Center Director Relationship Specialty Start Date End Date Po Hand DO PCP - General Internal Medicine 12/17/20 Kamlesh Guzman MD [id number] [facility] [address] [place] [address] [address] Surgeon Vascular Surgery 08/29/21
--- OUTSIDE RECORDS SUMMARY | 2024-06-04 00:49 | XMS_ITS | Clinical Summary ---
Author Organization [facility] Address [address] [place] [address] Care Team Providers Care Aids Counselor Name Role Phone Po Hand DO Primary Care Provider + [phone] Kamlesh Guzman MD Unavailable [phone] Allergies No known active allergies Medications glucosamine/D3/ [...] duplex. Assessment & Plan (02/10/2021 2:57 PM LAUNDRY ROOM ATTENDANT): Impression: Patient has painful varicosities throughout bilateral [...] proceed. Assessment & Plan (01/19/2021 1:45 PM LAUNDRY ROOM ATTENDANT): Patient has longstanding history of progressively painful varicosities throughout the bilateral lower extremities. He has intermittently worn compression stockings. He is otherwise healthy and active. Will obtain lower extremity venous reflux study recommended conservative measures which include knee-high compression therapy ongoing exercise and elevation. Follow up in 2-3 months for repeat evaluation. Surgical History Surgery Date Site/Laterality Comments UMBILICAL HERNIA REPAIR LASER ABLATION 06/03/2021 Right RLE SSV EVLT w/ 25 miroc stabs LASER ABLATION 07/29/2021 Left LT GSV EVLT with 22 phlebs. Medical History Medical History Date Comments Hyperlipidemia Family History Medical History Relation Name Comments No Known Problems Father No Known Problems Mother Relation Name Status Comments Father Mother Social History Tobacco Use Types Packs/Day Years Used Date Smoking Tobacco: Never Sex and Gender Information Value Date Recorded Sex Assigned at Not on file Legal Sex Male 2:54 PM CDT Gender Identity Not on file Sexual Orientation Not on file Obstetrics History Last Filed Vital Signs Vital Sign Reading [...] 08/31/2021 2:51 PM CDT Plan of Treatment Health Maintenance Due Date Last Done Comments Colon Cancer Screening-Colonoscopy 1965 Depression Screening 1965 Hepatitis C Screening 1965 Prostate Cancer Screening-PSA 1963 DTaP/Tdap/Td Vaccine (1 - Tdap) 11/19/1974 Hepatitis B Screening 11/19/1981 Regular Well Visit/Exam 18-64 11/19/1981 Zoster Vaccine (1 of 2) 11/19/2013 Covid-19 Vaccine (2 - 2023-2 5 season) 2023 06/12/2020 Influenza Vaccine (#1) 2023 Pneumococcal vaccine <65 Aged Out No longer eligible based on patient's age to complete this topic Insurance [employer]IG[employer] CIGNA OPEN ACCESS [employer]ENSATION GENERIC [address] [facility] [address] [place] [address] Care Teams Aids Counselor Relationship Specialty Start Date End Date Po Hand DO PCP - General Internal Medicine 12/17/20 Kamlesh Guzman MD [id number] [facility] [address] [place] [address] Surgeon Vascular Surgery 08/29/21
--- OUTSIDE RECORDS SUMMARY | 2024-06-04 00:49 | XMS_ITS | Continuity of Care Document ---
Author Organization [facility] Address [address] [facility] [address] [place] [address] Phone Care Team Providers Care Administrative Asst Name Role Phone No Information Unavailable Unavailable Procedures Procedure Date Progress Note Therapeutic Activities Neuromuscular Re-Ed Therapeutic Exercise Therapeutic Activities Neuromuscular Re-Ed Therapeutic Exercise Therapeutic Activities Neuromuscular Re-Ed Therapeutic Exercise Therapeutic Activities Neuromuscular Re-Ed Therapeutic Exercise Therapeutic Activities Neuromuscular Re-Ed Therapeutic Exercise Therapeutic Activities Neuromuscular Re-Ed Therapeutic Exercise Therapeutic Activities Neuromuscular Re-Ed Therapeutic Exercise Therapeutic Activities Neuromuscular Re-Ed Therapeutic Exercise Progress Note Therapeutic Activities Neuromuscular Re-Ed Therapeutic Exercise Therapeutic Activities Neuromuscular Re-Ed Therapeutic Exercise Therapeutic Activities Neuromuscular Re-Ed Therapeutic Exercise Therapeutic Activities Neuromuscular Re-Ed Therapeutic Exercise Therapeutic Activities Neuromuscular Re-Ed Therapeutic Exercise Manual Therapy Therapeutic Activities Neuromuscular Re-Ed Therapeutic Exercise Manual Therapy Therapeutic Activities Neuromuscular Re-Ed Therapeutic Exercise Manual Therapy Progress Note Therapeutic Activities Neuromuscular Re-Ed Therapeutic Exercise Manual Therapy Therapeutic Activities Neuromuscular Re-Ed Therapeutic Exercise Manual Therapy Therapeutic Activities Neuromuscular Re-Ed Therapeutic Exercise Manual Therapy Therapeutic Activities Neuromuscular Re-Ed Therapeutic Exercise Manual Therapy Doc neg elder mal no plan PT Evaluation Moderate Complexity Therapeutic Activities Neuromuscular Re-Ed Therapeutic Exercise Therapeutic Activities Neuromuscular Re-Ed Therapeutic Exercise MANAGER EPIC Acute Therapeutic Activities Neuromuscular Re-Ed Therapeutic Exercise Therapeutic Activities Neuromuscular Re-Ed Therapeutic Exercise Therapeutic Activities Neuromuscular Re-Ed Therapeutic Exercise Therapeutic Activities Neuromuscular Re-Ed Therapeutic Exercise Therapeutic Activities Neuromuscular Re-Ed Therapeutic Exercise Therapeutic Activities Therapeutic Exercise Neuromuscular Re-Ed Therapeutic Activities Neuromuscular Re-Ed Therapeutic Exercise Therapeutic Activities Neuromuscular Re-Ed Therapeutic Exercise Therapeutic Activities Neuromuscular Re-Ed Therapeutic Exercise Therapeutic Activities Neuromuscular Re-Ed Therapeutic Exercise Therapeutic Activities Neuromuscular Re-Ed Therapeutic Exercise Therapeutic Activities Neuromuscular Re-Ed Therapeutic Exercise MANAGER EPIC Acute Therapeutic Activities Neuromuscular Re-Ed Therapeutic Exercise Therapeutic Activities Neuromuscular Re-Ed Therapeutic Exercise Therapeutic Activities Neuromuscular Re-Ed Therapeutic Exercise Therapeutic Activities Neuromuscular Re-Ed Therapeutic Exercise Therapeutic Activities Neuromuscular Re-Ed Therapeutic Exercise Therapeutic Activities Neuromuscular Re-Ed Therapeutic Exercise Therapeutic Activities Neuromuscular Re-Ed Therapeutic Exercise Therapeutic Activities Neuromuscular Re-Ed Therapeutic Exercise Therapeutic Activities Neuromuscular Re-Ed Therapeutic Exercise Therapeutic Activities Neuromuscular Re-Ed Therapeutic Exercise Therapeutic Activities Neuromuscular Re-Ed Therapeutic Exercise Therapeutic Activities Neuromuscular Re-Ed Therapeutic Exercise PT Re-evaluation Therapeutic Activities Neuromuscular Re-Ed Therapeutic Exercise Therapeutic Activities Neuromuscular Re-Ed Therapeutic Exercise Therapeutic Activities Neuromuscular Re-Ed Therapeutic Exercise Manual Therapy Therapeutic Activities Neuromuscular Re-Ed Therapeutic Exercise Manual Therapy Therapeutic Activities Neuromuscular Re-Ed Therapeutic Exercise Manual Therapy Therapeutic Activities Neuromuscular Re-Ed Therapeutic Exercise Manual Therapy Therapeutic Activities Neuromuscular Re-Ed Therapeutic Exercise Manual Therapy Therapeutic Activities Therapeutic Exercise Neuromuscular Re-Ed Therapeutic Activities Neuromuscular Re-Ed Therapeutic Exercise Therapeutic Activities Neuromuscular Re-Ed Therapeutic Exercise Therapeutic Activities Neuromuscular Re-Ed Therapeutic Exercise Manual Therapy PT Re-evaluation Therapeutic Activities Neuromuscular Re-Ed Therapeutic Exercise Manual Therapy Therapeutic Activities Neuromuscular Re-Ed Therapeutic Exercise Manual Therapy Therapeutic Activities Neuromuscular Re-Ed Therapeutic Exercise Manual Therapy PT Evaluation Low Complexity Therapeutic Activities Therapeutic Exercise Manual Therapy Advance Directives Directive Yes / No Effective Date File Name No Information Encounters Encounter Description Practice Location Reason(s) For Visit Diagnoses Date Provider Providers Copied on Encounter [facility], [address], [place], [place], [id number], [place] tel:[phone] No Information May-2 0-202 5 No Information [facility], [address], [place], [place], [address], [place] tel:[phone] [place] No Information Mar-0 5-202 5 [place] Vishnu. . Referring Provider: Kurtis Mota, [facility] [address] [place] [address] [address], [place], [facility]. tel:[phone] [facility] [address], [place], [place], [address], [place] tel:[phone] [place] No Information 5 [place] Vishnu. . Referring Provider: Kurtis Mota, [facility] [address] [place] [address] [address], [place], [facility]. tel:[phone] [place] [address] [address], [place], [place], [address], [place] tel:[phone] [place] No Information 5 [place] Vishnu. . Referring Provider: Kurtis Mota, [facility] [address] [place] [address] [address], [place], [facility]. tel:[phone] [facility] [address], [place], [place], [address], [place] tel:[phone] [place] No Information 3- 5 [place]. Referring Provider: Kurtis Mota, [facility] [address] [place] [address] [address], [place], [facility]. tel:[phone] [facility], [address], [place], [place], [address], [place] tel:[phone] [place] No Information 2- 5 [place] Vishnu. . Referring Provider: Kurtis Mota, [facility] [address] [place] [address] [address], [place], [facility]. tel:[phone] [address], [place], [place], [address], tel:[phone] [place] No Information Feb-1 0-202 5 [place] Vishnu. . Referring Provider: Kurtis Mota, [facility] [address] [place] [address] [address], [place], [facility]. tel:[phone] [place], [place] [address], [place], [place], [address], [place] tel:[phone] [place] No Information Feb-0 7-202 5 [place] Vishnu. . Referring Provider: Kurtis Mota, [facility] [address] [place] [address] [address], [place], [facility]. tel:[phone] [place] [address] [place], [place] [address], [place], [place], [address], [place] tel:[phone] [place] No Information Feb-0 5-202 5 [place] Vishnu. . Referring Provider: Kurtis Mota, [facility] [address] [place] [address] [address], [place], [facility]. tel:[phone] [facility] [address] [place], [place] [address], [place], [place], [address], [place] tel:[phone] [place] No Information Feb-0 3-202 5 [place] Vishnu. . Referring Provider: Kurtis Mota, [facility] [address] [place] [address] [address], [place], [facility]. tel:[phone] [facility] [address] [place], [place] [address], [place], [place], [address], [place] tel:[phone] [place] No Information 1-202 5 [place] Vishnu. . Referring Provider: Kurtis Mota, [facility] [address] [place] [address] [address], [place], [address]. tel:[phone] [facility] [address] [place], [place] [address], [place], [place], [address], [place] tel:[phone] [place] No Information 5 [place] Vishnu. . Referring Provider: Kurtis Mota, [facility] [address] [place] [address] [address], [place], [facility]. tel:[phone] [facility] [address] [place], [place] [address], [place], [place], [address], [place] tel:[phone] [place] No Information 5 [place] Vishnu. . Referring Provider: Kurtis Mota, [facility] [address] [place] [address] [address], [place], [facility]. tel:[phone] [facility] [address] [place] [address], [place], [place], [address], [place] tel:[phone] [place] No Information 5 [place] Vishnu. . Referring Provider: Kurtis Mota, [facility] [address] [place] [address] [address], [place], [facility]. tel:[phone] [facility] [address] [place], [place] [address], [place], [address], [place] tel:[phone] [place] No Information 5 [place] Vishnu. . Referring Provider: Kurtis Mota, [facility] [address] [place] [address] [address], [place], [address]. tel:[phone] [facility] [address] [place], [place] [address], [place], [place], [address], [place] tel:[phone] [place] No Information 0- 5 [place] Vishnu. . Referring Provider: Kurtis Mota, [facility] [address] [place] [address] [address], [place], [facility]. tel:[phone] [facility] [address], [place], [place], [address], [place] tel:[phone] [place] No Information 5 [place] Vishnu. . Referring Provider: Kurtis Mota, [facility] [address] [place] [address] [address], [place], [facility]. tel:[phone] [facility] [address], [place], [place], [address], [place] tel:[phone] [place] No Information 5 Bo[place] , [place], [place]. Referring Provider: Kurtis Mota, [facility] [address] [place] [address] [address], [place], [facility]. tel:[phone] [facility] [address] [place], [place] [address], [place], [place], [address], [place] tel:[phone] [place] No Information 5 Bo[place] , [place], [place]. Referring Provider: Kurtis Mota, [facility] [address] [place] [address] [address], [place], [facility]. tel:[phone] [facility] [address] [place], [place] [address], [place], [place], [address], [place] tel:[phone] [place] No Information 5 [place] Vishnu. . Referring Provider: Kurtis Mota, [facility] [address] [place] [address] [address], [place], [facility]. tel:[phone] [facility] [address] [place], [place] [address], [place], [place], [address], [place] tel:[phone] [place] No Information 5 [place], [place]. Referring Provider: Kurtis Mota, [facility] [address] [place] [address] [address], [place], [facility]. tel:[phone] [facility] [address], [place], [place], [address], [place] tel:[phone] [place] No Information Antonio-1 - 4 [place] Nader. , [place], [place]. Referring Provider: Rashaad Izagu[address], [place], [address]. tel:[phone] [place] [address] [address], [place], [place], [address], [place] tel:[phone] [place] No Information Antonio-1 2-202 4 [place]. , [place], [place]. Referring Provider: Rashaad Izagu[address], [place], [address]. tel:[phone] [place] [address] [address], [place], [place], [address], [place] tel:[phone] [place] No Information Antonio-1 0-202 4 [place]. , [place], [place]. Referring Provider: Rashaad Izagu[address], [place], [address]. tel:[phone] [place] [address] [address], [place], [place], [address], [place] tel:[phone] [place] No Information Antonio-0 6- [facility] , [place] [place]. Referring Provider: Rashaad Izagu[address], [place], [address]. tel:[phone] [facility] [address], [place], [place], [address], [place] tel:[phone] [place] No Information Antonio-0 5-202 4 [place]. , [place]. Referring Provider: Rashaad Iz[address], [place], [address]. tel:[phone] [facility] [address], [place], [place], [address], [place] tel:[phone] [place] No Information Antonio-0 3-202 4 [place]. , [place], [place]. Referring Provider: Rashaad Izagu[address], [place], [address]. tel:[phone] [facility] [address], [place], [place], [address], [place] tel:[phone] [place] No Information 3 4 Bo[place]. , [place]. Referring Provider: Rashaad Iz[address], [place], [address]. tel:[phone] [place] [address] [address], [place], [place], [address], [place] tel:[phone] [place] No Information 4 [place]. , [place], [place]. Referring Provider: Rashaad Iz[address], [place], [address]. tel:[phone] [place] [address] [address], [place], [place], [address], [place] tel:[phone] [place] No Information 4 H[place] Nader. , [place]. Referring Provider: Rashaad Iz[address], [place], [address]. tel:[phone] [place] [address] [facility] [address], [place], [place], [address], [place] tel:[phone] [place] No Information 4 [place] Nader. , [place], [place]. Referring Provider: Rashaad [address], [place], [address]. tel:[phone] [facility] [address], [place], [place], [address], [place] tel:[phone] [place] No Information 4 [place] Nader. , [place]. Referring Provider: Rashaad Iz[address], [place], [address]. tel:[phone] [place], [place] [address] [address], [place], [place], [address], [place] tel:[phone] [place] No Information 2 0- 4 [place]. , [place], [place]. Referring Provider: Rashaad Izagu[address], [place], [address]. tel:[phone] [place] [address] [address], [place], [place], [address], [place] tel:[phone] [place] No Information 4 [place]. , [place]. Referring Provider: Rashaad Iz[address], [place], [address]. tel:[phone] [place] [address] [facility] [address], [place], [place], [address], [place] tel:[phone] [place] No Information 4 [place] Doe. , [place], [place]. Referring Provider: Rashaad Iz[address], [place], [address]. tel:[phone] [place] [address] [address], [place], [place], [address], [place] tel:[phone] [place] No Information 4 [place]. , [place], [place]. Referring Provider: aRshaad Izagu[address], [place], [address]. tel:[phone] [place] [address] [address], [place], [place], [address], [place] tel:[phone] [place] No Information July-0 - 4 [place]. , [place], [place]. Referring Provider: Rashaad Izagu[address], [place], [address]. tel:[phone] [place] [address] [address], [place], [place], [address], [place] tel:[phone] [place] No Information July-0 8- 4 [place]. , [place], [place]. Referring Provider: Rashaad Iz[address], [place], [address]. tel:[phone] [facility] [address], [place], [place], [address], [place] tel:[phone] [place] No Information July-0 4 [place]. , [place]. Referring Provider: Rashaad Iz[address], [place], [address]. tel:[phone] [place] [address] [address], [place], [place], [address], [place] tel:[phone] [place] No Information 0 4 [place]. , [place]. Referring Provider: Rashaad Iz[address], [place], [address]. tel:[phone] [place] [address] [address], [place], [place], [address], [place] tel:[phone] [place] No Information 0 4 [place]. , [place]. Referring Provider: Rashaad Iz[address], [place], [address]. tel:[phone] [facility] [address], [place], [place], [address], [place] tel:[phone] [place] No Information 4 Shelli Mares. . Referring Provider: Rashaad Iz[address], [place], [address]. tel:[phone] [facility] [address], [place], [place], [address], [place] tel:[phone] [place] No Information 4 [place]. , [place], [place]. Referring Provider: Rashaad Iz[address], [place], [address]. tel:[phone] [facility], [place], [place], [address], [place] tel:[phone] [place] No Information 4 [place]. , [place]. Referring Provider: Rashaad Iz[address], [place], [address]. tel:[phone] [facility], [address], [place], [place], [address], [place] tel:[phone] [place] No Information 4 [place]. , [place]. Referring Provider: Rashaad Iz[address], [place], [address]. tel:[phone] [place] [address], [address], [place], [place], [address], [place] tel:[phone] [place] No Information 4 [place] N[place]. , [place]. Referring Provider: Rashaad Iz[address], [place], [address]. tel:[phone] [place] [address], [address], [place], [place], [address], [place] tel:[phone] [place] No Information 4 [place] N[place]. , [place]. Referring Provider: Rashaad Iz[address], [place], [address]. tel:[phone] [facility], [place], [place], [address], [place] tel:[phone] [place] No Information 4 [place]. , [place]. Referring Provider: Rashaad Iz[address], [place], [address]. tel:[phone] [facility], [place], [place], [address], [place] tel:[phone] [place] No Information 4 Shelli Mares. . Referring Provider: Rashaad Iz[address], [place], [address]. tel:[phone] [facility] [address], [place], [place], [address], [place] tel:[phone] [place] No Information Apr-1 0-202 4 [place]. , [place]. Referring Provider: Rashaad Iz[address], [place], [address]. tel:[phone] [facility] [address], [place], [place], [address], [place] tel:[phone] [place] No Information Apr-0 8- 4 [place]. , [place]. Referring Provider: Rashaad Iz[address], [place], [address]. tel:[phone] [facility] [address], [place], [place], [address], [place] tel:[phone] [place] No Information Apr-0 5-202 4 [place]. , [place]. Referring Provider: Rashaad Iz[address], [place], [address]. tel:[phone] [facility], [place], [place], [address], [place] tel:[phone] [place] No Information Apr-0 3-202 4 [place]. , [place]. Referring Provider: Rashaad Iz[address], [place], [address]. tel:[phone] [facility] [address], [place], [place], [address], [place] tel:[phone] [place] No Information Apr-0 1-202 4 Shelli Mares. . Referring Provider: Rashaad Iz[address], [place], [address]. tel:[phone] [facility], [place], [place], [address], [place] tel:[phone] [place] No Information May-2 4 [place] Olivier. . Referring Provider: Rashaad Iz[address], [place], [address]. tel:[phone] [place] [address], [address], [place], [place], [address], [place] tel:[phone] [place] No Information May- 4 [place]. , [place]. Referring Provider: Rashaad Iz[address], [place], [address]. tel:[phone] [place] [address] [address], [place], [place], [address], [place] tel:[phone] [place] No Information May- 4 Shelli Mares. . Referring Provider: Rashaad Iz[address], [place], [address]. tel:[phone] [place] [address] [address], [place], [place], [address], [place] tel:[phone] [place] No Information 4 [place]. , [place]. Referring Provider: Rashaad Iz[address], [place], [address]. tel:[phone] [place] [address] [address], [place], [place], [address], [place] tel:[phone] [place] No Information May- 4 [place]. , [place]. Referring Provider: Rashaad Iz[address], [place], [address]. tel:[phone] [place] [address] [address], [place], [place], [address], [place] tel:[phone] [place] No Information 4 H[place] N[place]. , [place]. Referring Provider: Rashaad Iz[address], [place], [address]. tel:[phone] [facility], [address], [place], [place], [address], [place] tel:[phone] [place] No Information 4 [place] Olivier. . Referring Provider: Rashaad Iz[address], [place], [address]. tel:[phone] Family History Family Member Type Diagnosis Age At Onset No Information Payers Payer name Insurance type Covered libertarian ID Authoriza tion(s) [employer] [facility] [place] CI [id number] Social History Type Description Quantity Date Captured Comments Sex Male Smoking Status No Information Chief Complaint And Reason For Visit No Information Reason For Referral Reason For Referral No Information Plan Of Treatment Date Type Action Status Appointment Emerson Asencio - Portal Complete BOOKED Appointment Emerson Asencio BOOKED History Of Present Illness Encounter Date Complaint History Of Prese nt Illness No Information Functional Status Date Functional Assessmen t No Information Instructions Date Instruction Additional Infor mation No Information Assessments Type Assessment Date No Information Patient Care Teams Name Effective Dates (start - stop) Status Members No Information
--- NOTE | 2024-06-04 07:16 | WPDHPUPDATE1 ---
History and Physical Update Update Date/Time: 06/04/24 07:16 History and Physical has been reviewed, including an updated exam of the patient. There are NO changes in the patient's condition. Risks, benefits, and alternatives have been discussed and questions answered. Patient agrees to proceed with procedure.
[2024-06-04 13:15] VITALS: BP 138/91; PULSE 81; RESP 14; TEMP 36.5; O2SAT 100; BMI 24.1
[2024-06-04] MEDS: CELECOXIB 200 MG CAPSULE PO (13:47)
[2024-06-04] MEDS: ACETAMINOPHEN 500 MG TABLET 1000 MG PO (13:47)
[2024-06-04] MEDS: LACTATED RINGERS 1,000 ML 30 ML IV CONT (13:50)
--- NOTE | 2024-06-04 15:17 | P.PNAN_ITS ---
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 Patient Data Age: 58 Gender: M Height: 1.83 m Weight: 80.7 kg Last Vital Signs Temp 97.7 F 06/04/24 13:15 Pulse 81 06/04/24 13:15 Resp 14 06/04/24 13:15 BP 138/91 H 06/04/24 13:15 Pulse Ox 100 06/04/24 13:15 O2 Del Method Room Air 06/04/24 13:15 Allergies Allergy/AdvReac Type Severity Reaction Status Date / Time No Known Allergies Allergy Verified 06/04/24 15:15 Home Medications ?Medication ?Instructions ?Recorded ?Confirmed ?Type glucosamine [id number] 1 tablet PO DAILY 02/14/19 06/04/24 History vannessa 1,500 mg-400 unit-100 mg tablet (Osteo Bi-Flex (5-Loxin)) multivitamin 1 tablet PO DAILY 02/14/19 06/04/24 History sildenafil 50 mg tablet 50 mg PO DAILY PRN sexual activity 10/31/23 05/28/24 Rx #30 tabs omega 2-zck-vze-fish oil 900 1 cap PO DAILY 02/12/24 06/04/24 History mg-1,400 mg capsule,delayed release diazepam 5 mg tablet 5 mg PO BID PRN muscle spasm 04/25/24 05/28/24 History tramadol 50 mg tablet 50 mg PO Q6H PRN pain 04/25/24 05/28/24 History acetaminophen 325 mg tablet (Pain 650 mg PO ONCE PRN pain 05/28/24 06/04/24 History Relief (acetaminophen)) Patient hx anesthesia problems: none Family hx anesthesia problems: none Results Review: All pre-operative results and documents have been reviewed as part of the pre- operative evaluation. REPLACED BY [facility] Past Medical History Medical History Right knee DJD Hyperlipidemia Varicose veins of bilateral lower extremities with pain Hernia Surgical History Surgical History S/P total knee arthroplasty H/O lateral meniscus repair of left knee H/O umbilical hernia repair Family History Family History Mother Patient's mother is in good health Father Patient's father is in good health Unknown Hypertension Social History Social History Smoking status: Never smoker Second hand tobacco smoke exposure: No Additional smoking assessment comments: . 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 Spiritual care concerns: No Anes - Eval Final PreProcedure Day of Procedure 06/04/24 15:17 Patient weight: normal Lungs: normal air movement Airway: Mallampati scale class II Neurological: alert and oriented Last oral intake: >/= 8 hours ASA classification: II Emergent: no Anesthetic plan: proceed Anesthesia type and monitoring: general GIVS and standard monitoring Results Review: All pre-operative results and documents have been reviewed as part of the pre- operative evaluation. Diet controlled hyperlipidemia. Informed Consent: The patient's anesthetic plan and its attendant risks and benefits were discussed with the patient/family/POA. Questions were solicited and answers provided to the satisfaction of the patient/family/POA.
[2024-06-04 15:40] VITALS: BP 121/96; PULSE 86; RESP 20; TEMP 36.2; O2SAT 97
[2024-06-04] MEDS: BUPivacaine HCL 0.5% PF 30 ML VIAL INFILTRATE (15:41)
--- NOTE | 2024-06-04 15:51 | W.PM.PROC2 ---
Procedure Note - Detailed Date of Procedure 06/04/24 Pre-op Diagnosis Adhesive Capsulitis Right Knee Post-op Diagnosis Same Procedure Performed YANICK, INJECTION RIGHT TKA Surgeon Kurtis Mota MD Anesthesia General Description of Procedure THE PATIENT WAS TAKEN TO THE OPERATING ROOM AND PLACED UNDER GENERAL ANESTHESIA. ONCE HE WAS CHEMICALLY PARALYZED THE RIGHT KNEE WAS MANIPULATED UNTIL ABOUT 120 DEG OF FLEXION AND FULL EXTENSION WERE ACHIEVED. NEXT THE RIGHT KNEE WAS PREPPED AND DRAPED STERILELY. DEPO MEDROL 80 MG X 2 CC AND MARCAINE 0.5% 10 CC WERE INJECTED IN TO THE RIGHT KNEE JOINT. THE PATIENT WAS SENT TO THE RECOVERY ROOM ONCE GENERAL ANESTHESIA WAS REVERSED, IN STABLE CONDITION. Estimated Blood Loss 0 Complications No immediate complications Condition Stable Disposition PACU
[2024-06-04 15:55] VITALS: BP 134/91; PULSE 73; RESP 16; O2SAT 98
[2024-06-04 16:10] VITALS: BP 142/94; PULSE 73; RESP 18; O2SAT 99
[2024-06-04 16:40] VITALS: BP 151/83; PULSE 80; RESP 16; O2SAT 100
[2024-06-04] MEDS: oxyCODONE HCL (*CRX) 5 MG TAB IR PO (16:51)
[2024-06-04 17:05] VITALS: BP 152/84; PULSE 82; RESP 16
== END 2024-06-04 17:10 | disposition home or self-care (01) ==
PROVIDERS: PCP Internal Medicine; Visit Provider Orthopaedic Surgery
PROC: (CPT 27570; principal; 2024-06-04 15:00)
DX: M25.661 Stiffness of right knee, not elsewhere classified (principal); M76.891 Other specified enthesopathies of right lower limb, excluding foot; Z96.651 Presence of right artificial knee joint
CPT/HCPCS: 27570; A9270; J0330; J1010; J2704; J7120